=== PATIENT | male | born 1950 | race Caucasian/White ===

== ENCOUNTER 2018-03-22 15:30 | Emergency (ER) | payer OTHER ==
[~2018-03-22] VITALS: Ht 177.8 cm; Wt 79.4 kg
[2018-03-22] MEDS ORDERED: KEFLEX500 M1 PO (17:16)
[2018-03-22 17:45] VITALS: BP 136/50
== END 2018-03-22 18:10 | disposition home or self-care (01) ==
LOC: ER 15:30
DX: S01.81XA Laceration without foreign body of other part of head, initial encounter (principal); Z88.5 Allergy status to narcotic agent; Z88.0 Allergy status to penicillin; Z95.0 Presence of cardiac pacemaker; Z90.49 Acquired absence of other specified parts of digestive tract; W01.198A Fall on same level from slipping, tripping and stumbling with subsequent striking against other object, initial encounter; Y92.009 Unspecified place in unspecified non-institutional (private) residence as the place of occurrence of the external cause; Y93.89 Activity, other specified; Y99.8 Other external cause status

== ENCOUNTER 2018-03-24 12:33 | Emergency (ER) | payer OTHER ==
[~2018-03-24] VITALS: Ht 180.3 cm; Wt 79.4 kg
[~2018-03-24 12:33] MED LIST: KEFLEX500 M1 PO
[2018-03-24 14:02] LABS: URINE BILIRUBIN NEGATIVE (Negative); URINE BLOOD NEGATIVE (Negative); URINE CLARITY CLEAR; URINE COLOR YELLOW; URINE GLUCOSE-RANDOM* NEGATIVE (Negative); URINE KETONES NEGATIVE (Negative); URINE LEUKOCYTES-REFLEX NEGATIVE (Negative); URINE NITRITE-REFLEX NEGATIVE (Negative); URINE PROTEIN (DIPSTICK) NEGATIVE (Negative); URINE SPECIFIC GRAVITY <= 1.005 (1.005-1.035)
[2018-03-24 14:17] LABS: ABSOLUTE NEUTROPHILS 3.8 thou/uL (1.4-8.2); BASOPHILS 0.6 % (0.0-2.0); EOSINOPHILS 0.8 % (0.0-3.0); HEMOGLOBIN 12.4 gm/dL (14.0-18.0); LYMPHOCYTES 10.5 % (24.0-44.0); MCH 34.6 pg (26.0-34.0); MCHC 35.6 g/dL (28.0-37.0); MCV 97.2 fL (80.0-100.0); PLATELET COUNT 110 thou/uL (150-400); POLYS 79.1 % (36.0-66.0); RDW 14.4 % (10.5-14.5); WBC 4.8 thou/uL (4.0-11.0)
[2018-03-24 14:27] LABS: CALCIUM 9.1 mg/dL (8.5-10.1); CREATININE 0.9 mg/dL (0.7-1.3); POTASSIUM 3.7 mmol/L (3.5-5.1)
[2018-03-24] MEDS ORDERED: NORCO 5-325 TA1 EACH PO (15:27)
[2018-03-24 17:14] VITALS: BP 164/80
== END 2018-03-24 17:17 | disposition left against medical advice (07) ==
LOC: ER 12:33
PROVIDERS: Nurse Practitioner Family
DX: S42.031A Displaced fracture of lateral end of right clavicle, initial encounter for closed fracture (principal); S20.211A Contusion of right front wall of thorax, initial encounter; F07.81 Postconcussional syndrome; R91.8 Other nonspecific abnormal finding of lung field; F17.200 Nicotine dependence, unspecified, uncomplicated; Z90.49 Acquired absence of other specified parts of digestive tract; Z95.0 Presence of cardiac pacemaker; W18.39XA Other fall on same level, initial encounter; Y92.89 Other specified places as the place of occurrence of the external cause; Y93.89 Activity, other specified; Y99.8 Other external cause status

== ENCOUNTER 2018-03-26 10:46 | Emergency (ER) | payer OTHER ==
[~2018-03-26] VITALS: Ht 177.8 cm; Wt 79.4 kg
[~2018-03-26 10:46] MED LIST changes: +NORCO 5-325 TA1 EACH PO
[2018-03-26 10:47] VITALS: BP 127/63
[2018-03-26] MEDS ORDERED: MOBIC15 MG PO (12:07)
== END 2018-03-26 12:40 | disposition home or self-care (01) ==
LOC: ER 10:46
DX: S42.031D Displaced fracture of lateral end of right clavicle, subsequent encounter for fracture with routine healing (principal); F10.20 Alcohol dependence, uncomplicated; F98.8 Other specified behavioral and emotional disorders with onset usually occurring in childhood and adolescence; Z48.02 Encounter for removal of sutures; Z90.49 Acquired absence of other specified parts of digestive tract; Z95.0 Presence of cardiac pacemaker; W18.39XD Other fall on same level, subsequent encounter

== ENCOUNTER 2018-03-30 11:45 | Emergency (ER) | payer OTHER ==
[~2018-03-30] VITALS: Ht 172.7 cm; Wt 68.0 kg
[~2018-03-30 11:45] MED LIST changes: +MOBIC15 MG PO
[2018-03-30] MEDS ORDERED: ULTRAM 50MG TAB50 MG PO (12:55)
[2018-03-30] MEDS ORDERED: NAPROSYN500 MG PO (12:55)
[2018-03-30 13:24] VITALS: BP 128/54
== END 2018-03-30 13:24 | disposition home or self-care (01) ==
LOC: ER 11:45
DX: S42.001D Fracture of unspecified part of right clavicle, subsequent encounter for fracture with routine healing (principal); Z76.0 Encounter for issue of repeat prescription; F98.8 Other specified behavioral and emotional disorders with onset usually occurring in childhood and adolescence; Z90.49 Acquired absence of other specified parts of digestive tract; Z95.0 Presence of cardiac pacemaker; X58.XXXD Exposure to other specified factors, subsequent encounter